=== PATIENT | male | born 1955 | race Caucasian/White ===

== ENCOUNTER → 2023-07-28 | Outpatient (CLI) | payer OTHER ==
[~2023-07-28] MED LIST: AMLODIPINE BESYL5 MG PO; ASPIRIN ADULT L81 M1 PO; ELIQUIS5 M1 PO; LISINOPRIL40 MG PO; LOVAZA1 GM PO; NORVASC5 MG PO; OMEGA-3-ACID ETH1 GM PO; PREDNISONE50 MG PO
== END | disposition home or self-care (01) ==
LOC: CARD 00:31
PROVIDERS: ATTEND Internal Medicine Cardiovascular Disease
DX: I45.10 Unspecified right bundle-branch block (principal); I48.0 Paroxysmal atrial fibrillation; R00.1 Bradycardia, unspecified; R07.9 Chest pain, unspecified